=== PATIENT | female | born 1970 | race Caucasian/White ===

== ENCOUNTER 2020-09-05 19:36 | Emergency (ER) | payer OTHER ==
[2020-09-05 19:57] VITALS: BP 110/66; PULSE 91; RESP 20; TEMP 98.6
--- NOTE | 2020-09-05 20:11 | ED ---
Recheck HPI - General Chief Complaint: Recheck/Abnormal Lab/Rx Stated Complaint: needs covid test Time Seen by Provider: 09/05/20 19:42 Source: patient, family Mode of arrival: ambulatory Limitations: no limitations - History of Present Illness Initial Comments: 50-year-old female patient presents to the emergency department today requesting testing for COVID-19. A family member is dying and [place]. She denies any current physical symptoms or concerns. States she feels well. - Related Data Allergies Allergy/AdvReac Type Severity Reaction Status Date / Time No Known Allergies Allergy Verified 09/05/20 19:57 Review of Systems ROS Statement: Those systems with pertinent positive or pertinent negative responses have been documented in the HPI. ROS Other: All systems not noted in ROS Statement are negative. Past Medical History Additional Past Medical History / Comment(s): depression History of Any Multi-Drug Resistant Organisms: None Reported Past Surgical History: No Surgical Hx Reported Past Psychological History: No Psychological Hx Reported Smoking Status: Current every day smoker Past Alcohol Use History: Occasional Past Drug Use History: None Reported General Exam Limitations: no limitations General appearance: alert, in no apparent distress Respiratory exam: Present: normal lung sounds bilaterally. Absent: respiratory distress, wheezes, rales, rhonchi, stridor Cardiovascular Exam: Present: regular rate, normal rhythm, normal heart sounds. Absent: systolic murmur, diastolic murmur, rubs, gallop, clicks Neurological exam: Present: alert, oriented X3, CN II-XII intact Psychiatric exam: Present: normal affect, normal mood Skin exam: Present: warm, dry, intact, normal color. Absent: rash Course Vital Signs 09/05/20 19:54 Temperature 98.6 F Pulse Rate 91 Respiratory 20 Rate Blood Pressure 110/66 O2 Sat by Pulse 97 Oximetry Medical Decision Making - Medical Decision Making 50-year-old female patient presented to the emergency department today requesting testing for COVID-19. Denied any current physical symptoms or concerns. She tested negative. She'll be discharged follow up with her primary care physician as needed. Case discussed with my attending Dr. Evans. - Lab Data Lab Results 09/05/20 Range/Units 20:07 Coronavirus (PCR) Not Detected (Not Detectd) Disposition Clinical Impression: Encounter for laboratory testing for COVID-19 virus Disposition: HOME SELF-CARE Condition: Good Instructions (If sedation given, give patient instructions): Coronavirus Disease 2019 (COVID-19) Is patient prescribed a controlled substance at d/c from ED?: No Referrals: Nonstaff,Physician [Primary Care Provider] - 1-2 days
== END 2020-09-05 20:36 | disposition home or self-care (01) ==
LOC: EC 19:36
DX: Z20.822 Contact with and (suspected) exposure to COVID-19 (principal)
CPT/HCPCS: 87635; 99282